=== PATIENT | male | born 1975 | race Caucasian/White ===

== ENCOUNTER 2016-11-28 11:04 | Inpatient (IN) | payer SELFPAY ==
[~2016-11-28] VITALS: Ht 165.1 cm; Wt 86.6 kg
[2016-11-28 11:16] VITALS: BP_SYST 188
[2016-11-28] MEDS ORDERED: NACL 0.9% 1,000 ML IV SCH (12:06)
--- NOTE | 2016-11-28 12:20 | NUR ---
Placed in room 5 .
--- NOTE | 2016-11-28 12:22 | NUR ---
ER at bedside examining patient.
--- NOTE | 2016-11-28 12:22 | NUR ---
# 20 gauge angiocath placed to lac Use of asceptic technique. Opsite placed over site. Blood return noted. Blood for lab drawn from site. Flushed with 10 cc of normal saline. No evidence of infiltration noted. Patient tolerated well.
--- NOTE | 2016-11-28 12:23 | NUR ---
c/o left lower leg redness for three days,skin intact,no draingage,no odor noted.
[2016-11-28 12:31] LABS: BASOPHILS # (AUTO) 0.1 K/uL (0.0-0.2); BASOPHILS % (AUTO) 0.5 % (0.0-2.0); EOSINOPHILS # (AUTO) 0.1 K/uL (0.0-0.4); EOSINOPHILS % (AUTO) 0.4 % (0.0-4.0); HEMATOCRIT 46.8 % (36-54); HEMOGLOBIN 15.2 g/dL (14.0-18.0); LYMPHOCYTES # (AUTO) 2.1 K/uL (1.0-5.5); LYMPHOCYTES % (AUTO) 16.2 % (20.5-51.5); MEAN CORPUSCULAR HEMOGLOBIN 28 pg (27-31); MEAN CORPUSCULAR HGB CONC 32 % (32-36); MEAN CORPUSCULAR VOLUME 87 fL (79.0-98.0); MONOCYTES # (AUTO) 0.8 K/uL (0.0-1.0); MONOCYTES % (AUTO) 6.1 % (1.7-9.3); NEUTROPHILS # (AUTO) 9.8 K/uL (1.8-7.7); NEUTROPHILS % (AUTO) 76.8 % (40.0-70.0); PLATELET COUNT (AUTO) 300 K/uL (130-430); RED BLOOD CELL COUNT(AUTO) 5.37 MIL/uL (4.2-6.2); RED CELL DISTRIBUTION WIDTH 11.3 % (9.0-15.0); WHITE BLOOD COUNT (AUTO) 12.9 K/uL (4.8-10.8)
[2016-11-28 12:38] LABS: CREATININE 0.87 mg/dL (0.55-1.30); POTASSIUM 3.7 mmol/L (3.5-5.1)
[2016-11-28 12:43] LABS: ALBUMIN 4.1 g/dL (3.4-4.8); TOTAL BILIRUBIN 0.7 mg/dL (0.0-1.0); TOTAL PROTEIN, SERUM 8.8 g/dL (6.4-8.3)
[2016-11-28] MEDS ORDERED: cefTRIAXone 1 GM IVPB PREMIX 50 ML IV ONE (13:30)
[2016-11-28] MEDS ORDERED: KETOROLAC TROMETHAMINE 30 MG VIAL IVP ONE (14:45)
[2016-11-28] MEDS ORDERED: PIPERACILLIN/TAZO 4.5 GM in NS 100 ML IV ONE ×2 (14:45→15:15)
[2016-11-28] MEDS ORDERED: VANCOMYCIN HCL 1 GM/NS PREMIX 250 ML IV SCH (15:00)
--- NOTE | 2016-11-28 15:24 | NUR ---
Note jessee in EDM - 11/28/16 at 1607 by VAN Patient will be admitted to care of . Admitted to unit. Will go to room . Belongings list completed. Summary report printed. Report GIVEN TO DARIAN thru phone.
--- NOTE | 2016-11-28 15:24 | NUR ---
Patient will be admitted to [facility]. Admitted to [facility] unit. Will go to room 101B. Belongings list completed. Summary report printed. Report will be given at bedside.
[2016-11-28 15:37] VITALS: BP_SYST 156
--- NOTE | 2016-11-28 15:37 | NUR ---
ADMISSION: The patient, JALIL HALL, 41 y/o, M admitted by HODAN RENEE MD, was given written information regarding hospital policies, unit procedures and contact persons.
--- NOTE | 2016-11-28 15:40 | NUR ---
Note jessee in ED - 11/28/16 at 1607 by VAN Patient will be admitted to care of [facility]. Admitted to unit. Will go to room . Belongings list completed. Summary report printed. Report will be given at bedside.
--- NOTE | 2016-11-28 16:00 | NUR ---
ROUNDING NOTES, PT IN BED, JUST CAME BACK FROM REST ROOM. PT IS AAO 4X, DENIES PAIN. NO SOB. NO DISTRES. PT EDUCATED ON THE USE OF CALL LIGHT AND BED CONTROLS, BED IN LOW POSITION. ENCOURAGED TO CALL FOR ASSIST AND PAIN MEDICATIONS. WILL CONT TO MONITOR.
--- NOTE | 2016-11-28 18:00 | NUR ---
ROUNDING NOTES, PT IN BED, FAMILY AT BEDSIDE. DENIES PAIN. NO SOB. NO DISTRESS. PT EDUCATED ON THE USE OF CALL LIGHT AND BED CONTROLS, BED IN LOW POSITION. WILL CONTINUE TO MONITOR.
[2016-11-28] MEDS ORDERED: ACETAMINOPHEN 325 MG TABLET PO PRN (18:30)
[2016-11-28] MEDS ORDERED: MORPHINE 2 MG/ML INJ. SYRINGE IVP PRN (18:30)
[2016-11-28] MEDS ORDERED: TEMAZEPAM 15 MG CAPSULE PO PRN ×2 (18:30)
[2016-11-28] MEDS ORDERED: VANCOMYCIN HCL 1,000 MG in NS 250 ML IV SCH (18:45)
--- NOTE | 2016-11-28 19:30 | NUR ---
ENDORSE TO NIGHT RN TO GIVE THE VANCOMYCIN IVPB.
--- NOTE | 2016-11-28 19:45 | NUR ---
OPENING NOTES PATIENT IS A/OX4. NO SIGNS OF DISTRESS. BREATHING IS NON LABORED. NO SIGNS OF DISTRESS. IV IS PATENT. PATIENT WAS GIVEN NON SKID SOCK. PATIENT INSTRUCTED TO CALL FOR ASSISTANCE. PATIENT VERBAL UNDERSTANDING. CALL LIGHT IS WITHIN REACH. BED ALARM IS ON. FAMILY IS AT BEDSIDE. WILL CONTINUE TO MONITOR.
--- NOTE | 2016-11-28 19:50 | NUR ---
SPOKE TO DR. RENEE REGARDING PATIENT NOT HAVING A DIET ORDER. STATED THAT IT IS OKAY FOR PATIENT TO HAVE REGULAR DIET. WILL INPUT NEW ORDER.
[2016-11-28] MEDS: VANCOMYCIN HCL 1,000 MG in NS 250 ML IV SCH (21:30)
--- NOTE | 2016-11-28 21:59 | NUR ---
HIGH BLOOD PRESSURE DR. RENEE CALLED PATIENT BLOOD PRESSURE IS 174/101. PATIENT HAS NO SIGNS AND SYMPTOMS OF HYPERTENSION. DR. RENEE WAS PAGED.
--- NOTE | 2016-11-28 23:00 | NUR ---
BLOOD PRESSURE REASSESSMENT PATIENT BLOOD PRESSURE WAS REASSESSED. DZ=319/90. PATIENT IS RESTING COMFORTABLY IN BED. WILL CONTINUE TO MONITOR.
[2016-11-29] VITALS: BP_SYST 142
--- NOTE | 2016-11-29 00:28 | NUR ---
ROUNDS PATIENT WAS GIVEN JUICE. PATIENT IS IN BED RESTING COMFORTABLY. NO SIGNS OF DISTRESS. BREATHING IS NON LABORED. BED ALARM IS ON. CALL LIGHT IS WITHIN REACH. WILL CONTINUE TO MONITOR.
--- NOTE | 2016-11-29 02:27 | NUR ---
ROUNDS PATIENT IS IN BED SLEEPING. NO SIGNS OF DISTRESS. BREATHING IS NON LABORED. SAFETY MEASURES ARE IN PLACE. WILL CONTINUE TO MONITOR.
[2016-11-29] MEDS: cloNIDine HCL 0.1 MG TABLET PO PRN ×2 (02:35→16:43)
[2016-11-29 04:00] VITALS: BP_SYST 148
--- NOTE | 2016-11-29 04:35 | NUR ---
ROUNDS PATIENT IS IN BED SLEEPING. BREATHING IS NON LABORED. NO SIGNS OF DISTRESS. CALL LIGHT IS WITHIN REACH. SAFETY MEASURES ARE IN PLACE. WILL CONTINUE TO MONITOR.
[2016-11-29] MEDS ORDERED: VANCOMYCIN HCL 1000 MG/VIAL IV ONE (05:41)
[2016-11-29] MEDS: VANCOMYCIN HCL 1,000 MG in NS 250 ML IV SCH (06:48)
--- NOTE | 2016-11-29 07:08 | NUR ---
CLOSING NOTES PATIENT IS IN BED RESTING COMFORTABLY. NO SIGNS OF DISTRESS. BREATHING IS NON LABORED. IV IS PATENT. CALL LIGHT IS WITHIN REACH. SAFETY MEASURES ARE IN PLACE. WILL ENDORSE ALL CARE TO THE MORNING NURSE.
[2016-11-29 08:00] VITALS: BP_SYST 158
--- NOTE | 2016-11-29 08:00 | NUR ---
RN ROUNDS PATIENT LYING ON BED, ALERT ORIENTED X 4 PATIENT WAS ASSESSED AND VITAL SIGNS ARE STABLE, PATIENT WILL BE GIVEN HIS MEDICATION AND WILL FOLLOW UP
[2016-11-29] MEDS ORDERED: metFORMIN HCL 500 MG TABLET PO ONE (09:00)
--- NOTE | 2016-11-29 09:22 | NUR ---
ID CONSULT, DR HENDRICKS, SHIFT SUPERINTENDENT CAUSTIC CRESYLATE FOR DR LUO IS AWARE OF THE CONSULT, RE: [id number]
--- NOTE | 2016-11-29 10:00 | NUR ---
RN ROUNDS PATIENT LYING ON BED, FINISHED EATING HIS BREAKFAST. HIS GIRL FRIEND BY BED SIDE, NO MAJOR ISSUE. WILL FOLLOW UP
[2016-11-29] MEDS ORDERED: LACTOBACILLUS RHAMNOSUS GG 1 CAP CAPSULE PO ONE (10:45)
--- NOTE | 2016-11-29 13:00 | NUR ---
RN ROUNDS PATIENT LYING ON BED, DENIES PAIN OR DISCOMFORT. VITAL SIGNS STABLE, CALL LIGHT PUT WITHIN REACH. WILL FOLLOW UP
[2016-11-29 13:01] VITALS: BP_SYST 163
[2016-11-29] MEDS: ceFAZolin SODIUM 1 GM in D5W 50 ML IV SCH ×2 (13:17→22:13)
[2016-11-29] MEDS: CLINDAMYCIN 900 MG in D5W 100 ML IV SCH ×2 (14:50→22:30)
--- NOTE | 2016-11-29 15:00 | NUR ---
RN ROUND NO CHANGE IN PATIENT STATUS, GIRL FRIEND BY BED SIDE, NO ISSUE WITH THE PATIENT
[2016-11-29 16:54] VITALS: BP_SYST 185
[2016-11-29] MEDS: metFORMIN HCL 500 MG TABLET PO SCH (17:48)
--- NOTE | 2016-11-29 18:00 | NUR ---
RN CLOSING NOTE PATIENT LYING ON BED ALERT ORIENTED DENIES PAIN, PATIENT REFUSED HIS PRESCRIBED METFORMIN. WILL ENDORCE TO NEXT SHIFT WILL SIGN OFF
[2016-11-29 20:00] VITALS: BP_SYST 162
--- NOTE | 2016-11-29 20:00 | NUR ---
STARTING NOTE PROFESSOR OF COMMUNICATION AND WRITING Patient in bed resting comfortably. A friend is at the bed side. No pain or any distress noted. The erythema on patient's lower leg-ankle area subsided compared to the one earlier according to a measurement done earlier in the day. Possible D/C planning for tomorrow.
[2016-11-29] MEDS: LACTOBACILLUS RHAMNOSUS GG 1 CAP CAPSULE PO SCH (22:12)
--- NOTE | 2016-11-29 22:30 | NUR ---
ROUNDS Patient in bed sleeping. No pain or distress noted. The friend left for the night. Fall precautions in place.
[2016-11-30 00:19] VITALS: BP_SYST 123
--- NOTE | 2016-11-30 01:00 | NUR ---
ROUNDS Patient in bed sleeping. No distress or pain noted, no fever. Fall precautions in place.
--- NOTE | 2016-11-30 03:30 | NUR ---
ROUNDS Patient in bed sleeping. No pain or distress noted. Fall precautions in place.
[2016-11-30 03:35] VITALS: BP_SYST 138
[2016-11-30] MEDS: ceFAZolin SODIUM 1 GM in D5W 50 ML IV SCH (05:18)
--- NOTE | 2016-11-30 05:30 | NUR ---
ROUNDS Patient in bed sleeping. No pain or distress noted. Fall precautions in place.
[2016-11-30] MEDS: CLINDAMYCIN 900 MG in D5W 100 ML IV SCH (06:05)
[2016-11-30 08:00] VITALS: BP_SYST 181
--- NOTE | 2016-11-30 08:00 | NUR ---
OPENING NOTE PT IS SITTING UP IN BED AND IS COMFORTABLE. A/O X 4 AND SPEAKS [place] WITH MINIMAL ZAMBIAN. PT PRESENTS WITH CELLULITIS OF LEFT LOWER FRONT LEG BUT IS HAS DIMINISHED (EVIDENCED BY THE ORIGINAL MARKINGS WITH A SKIN PEN) AND HE STATES IT IS NOT PAINFUL EVEN WHEN i TOUCH THE AFFECTED AREA.
--- NOTE | 2016-11-30 08:17 | NUR ---
CLOSING NOTE Patient in bed eating breakfast. No distress or pain noted. Patient's needs met throughout the shift. Report was given to the day shift nurse.
[2016-11-30] MEDS ORDERED: cloNIDine HCL 0.1 MG TABLET PO PRN (09:30)
[2016-11-30] MEDS: metFORMIN HCL 500 MG TABLET PO SCH (09:38)
[2016-11-30] MEDS: LACTOBACILLUS RHAMNOSUS GG 1 CAP CAPSULE PO SCH (09:38)
[2016-11-30] MEDS: cloNIDine HCL 0.1 MG TABLET PO PRN (09:38)
--- NOTE | 2016-11-30 10:00 | NUR ---
ROUNDS PT IS RESTING IN BED AND STATES HE IS COMFORTABLE. HE IS SCHEDULED TO DC HOME LATER TODAY
--- NOTE | 2016-11-30 10:02 | NUR ---
Associate Store Leader Note Patient [facility] by [facility]. ENGINEER SERGEANT noted patient is either uninsured or has emergency [employer]. Admitting had referred the case to Jefry with [employer] to follow up on [employer]. ENGINEER SERGEANT did not find any BAR notes from [facility]; ENGINEER SERGEANT emailed Jefry asking for information. ENGINEER SERGEANT met with patient at bedside. Patient primarily speaks [place] but is able to communicate in Dutch. ENGINEER SERGEANT provided a list of [facility] and a pharmacy discount card. ENGINEER SERGEANT stressed the importance of follow up with a [facility] physician as patient stated he has no PCP. ENGINEER SERGEANT noted patient has a new DM diagnosis. ENGINEER SERGEANT notified Anna FORD. Patient has Social Service contact information. Associate Store Leader will remain available.
[2016-11-30] MEDS ORDERED: GLU500 PO (10:31)
[2016-11-30] MEDS ORDERED: AMOX-426 PO (10:31)
[2016-11-30] MEDS ORDERED: LISI10TA5 PO (10:32)
--- NOTE | 2016-11-30 12:00 | NUR ---
ROUNDS PT SITTING UP IN BED WATCHING TV AND STATES HE IS COMFORTABLE AND WITHOUT PAIN. DC EDUCATION PROVIDED INCLUDING NEW Rx.
[2016-11-30 12:24] VITALS: BP_SYST 170
--- NOTE | 2016-11-30 13:05 | NUR ---
D/C Patient Patient given medication reconciliation form, written Rx, and D/C instructions. Exit Care provided ans PT verbalized understanding. MD discussed with patient the results and treatment provided. Pt is ambulatory with steady gait for discharge to home via a personal automobile. Patient in stable condition, ID band removed. IV catheter removed, intact and dressing applied, no active bleeding. Patient educated on follow-up care and s/s of exacerbation. All belongings sent with patient.
[2016-11-30 14:23] VITALS: BP_SYST 101
[2016-11-30 14:30] VITALS: BP_SYST 175
== END 2016-11-30 13:05 | disposition home or self-care (01) | DRG 603 ==
LOC: SED 11:04 → SMU 14:48
PROVIDERS: ADMIT Internal Medicine Hospice and Palliative Medicine; ATTEND Internal Medicine Hospice and Palliative Medicine
DX: L03.116 Cellulitis of left lower limb (principal); E11.9 Type 2 diabetes mellitus without complications; B96.89 Other specified bacterial agents as the cause of diseases classified elsewhere
CPT/HCPCS: 36415; 80053; 83605; 85025; 87040-TC; 99285; J0690; J0696; J1885; J2543; J3370; J3490; J7030; J7050; J7060